=== PATIENT | male | born 1990 | race African-American/Black ===

== ENCOUNTER 2016-07-26 21:14 | Emergency (ER) | payer OTHER ==
[~2016-07-26] VITALS: Ht 175.3 cm; Wt 91.2 kg
[2016-07-26 21:30] LABS: HEMATOCRIT 44.7 % (38.0-50.0); MCH 27.7 PG (29.0-34.0); MCHC 32.2 G/DL (30.0-36.0); MEAN PLAT.VOLUME 10.8 uM^3 (9.0-12.4); PLATELET COUNT 157 K/uL (156-360); RBC DIS.WIDTH-CV 11.9 % (11.8-14.6); RBC DIS.WIDTH-SD 37.4 % (39-53); WHITE BLOOD COUNT 8.4 K/uL (4.1-10.2)
[2016-07-26 21:42] LABS: CHLORIDE 101 mEq/L (99-109); POTASSIUM 4.1 mEq/L (3.7-5.4); SODIUM 139 mEq/L (136-147)
[2016-07-26 21:44] LABS: GLUCOSE 88 mg/dL (70-99)
[2016-07-26 21:45] LABS: ANION GAP 12 MEQ/L (2-14)
[2016-07-26 21:49] LABS: UREA NITROGEN (BUN) 17 mg/dL (9-23)
[2016-07-26 21:54] LABS: GFR ESTIMATE (CALCULATED) > 59 mL/min/
[2016-07-26 21:58] LABS: TROP-I INTERPRETATION NEGATIVE; TROPONIN-I < 0.01 ng/mL (0.0-0.30)
[2016-07-26 23:33] LABS: INFLUENZA A VIRAL ANTIGEN NEGATIVE; INFLUENZA B VIRAL ANTIGEN NEGATIVE
[2016-07-27 00:14] VITALS: BP 144/85
== END 2016-07-27 00:16 ==
LOC: EME 21:14
PROVIDERS: Emergency Medicine
DX: B34.9 Viral infection, unspecified (principal); R50.9 Fever, unspecified
CPT/HCPCS: 70450; 71010; 80048; 83605; 84484; 85027; 87040; 87502; 87651 90; 93005; 99281; 99284

== ENCOUNTER 2016-07-27 18:10 | Emergency (ER) | payer OTHER ==
[~2016-07-27] VITALS: Ht 182.9 cm; Wt 90.9 kg
[2016-07-27 19:11] VITALS: BP 129/93
== END 2016-07-27 19:26 ==
LOC: EME 18:10
DX: B34.9 Viral infection, unspecified (principal); M79.1 Myalgia; J45.909 Unspecified asthma, uncomplicated
CPT/HCPCS: 99281; 99284